=== PATIENT | female | born 1955 | race Caucasian/White ===

== ENCOUNTER 2023-01-31 18:47 | Observation (INO) ==
[2023-01-31 23:39] LABS: ABS Lymphocytes 1.2 10^3/uL (1.0-4.8); ABS Monocytes 0.8 10^3/uL (0.0-0.9); ABS Neutrophils 11.8 10^3/uL (1.5-7.6); Hematocrit 39.6 % (35-45); Hemoglobin 13.8 g/dL (11.5-14.3); Lymphocyte % 8.9 %; Mean Corpuscular Hemoglobin 33.3 pg (27-33); Mean Corpuscular Hgb Conc 34.9 g/dL (31-36); Mean Corpuscular Volume 95.2 fL (80-97); Mean Platelet Volume 7.8 fL (7.5-11.2); Platelet Count 282 10^3/uL (150-450); Red Blood Count 4.16 10^6/uL (3.63-4.92); Red Cell Distribution Width 12.7 % (12-17); White Blood Count 13.8 10^3/uL (3.8-11.8)
[2023-01-31 23:59] LABS: Albumin 4.6 g/dL (3.2-5.2); Albumin/Globulin Ratio 1.2 (1-3); Creatinine, Serum 0.72 mg/dL (0.51-0.95); Potassium 3.8 mmol/L (3.5-5.0); Total Bilirubin 0.6 mg/dL (0.2-1.0); Total Protein 8.6 g/dL (6.4-8.9)
[2023-02-01] MEDS ORDERED: Lactated Ringers 1000 ml BAG 1,000 ML IV ONE ×2 (02:49→23:25)
[2023-02-01 03:04] LABS: C Reactive Protein 174.67 mg/L (<8.01)
[2023-02-01] MEDS ORDERED: Iohexol 350 (CONTRAST) 500 ML MDV IV ONE (03:04)
[2023-02-01] MEDS ORDERED: cefTRIAXone 1 gm/50 mL D5W 1 GM/50 ML BAG IV ONE (05:20)
[2023-02-01] MEDS ORDERED: Azithromycin 500 mg/250 ml NS 500 MG/250 ML BAG IVPB ONE (05:20)
[2023-02-01 05:40] LABS: Urine Appearance Clear; Urine Bilirubin Negative (Negative); Urine Blood 2+ (Negative); Urine Color Yellow; Urine Glucose Negative (Negative); Urine Ketones 2+ (Negative); Urine Nitrite Negative (Negative); Urine Protein 1+(30 mg/dL) (Negative); Urine Specific Gravity 1.051 (1.002-1.030); Urine Urobilinogen Negative (Negative)
[2023-02-01 05:41] LABS: Urine Bacteria Absent (Absent); Urine Red Blood Cell 3+(>10/hpf) (Absent); Urine Squamous Epithelial Cell Present (Absent); Urine White Blood Cell Trace(0-5/hpf) (Absent)
[2023-02-01] MEDS ORDERED: NS 0.9% 1000 ml BAG 1,000 ML IV SCH (06:15)
[2023-02-01] MEDS: DOXYcycline 100 MG in NS 0.9% 250 ml 250 ML IVPB SCH ×3 (07:24→20:47)
[2023-02-01] MEDS ORDERED: Metoclopramide 5 MG/ML VIAL (10 mg) IV SLOW PU ONE (16:03)
[2023-02-01] MEDS ORDERED: Morphine 2 MG/ML SYRINGE IV ONE (16:04)
[2023-02-01] MEDS: Latanoprost 0.005% 2.5 ml BTL RIGHT EYE SCH (20:57)
[2023-02-01] MEDS ORDERED: Acetaminophen IV 1 GM/100ML 1,000 MG/100 ML BAG IV ONE (23:28)
[2023-02-02 00:02] LABS: ABS Lymphocytes 0.6 10^3/uL (1.0-4.8); ABS Monocytes 0.6 10^3/uL (0.0-0.9); ABS Neutrophils 9.7 10^3/uL (1.5-7.6); Hematocrit 31.8 % (35-45); Hemoglobin 11.2 g/dL (11.5-14.3); Lymphocyte % 5.9 %; Mean Corpuscular Hemoglobin 33.5 pg (27-33); Mean Corpuscular Hgb Conc 35.3 g/dL (31-36); Mean Platelet Volume 7.2 fL (7.5-11.2); Platelet Count 245 10^3/uL (150-450); Red Blood Count 3.34 10^6/uL (3.63-4.92); Red Cell Distribution Width 12.6 % (12-17)
[2023-02-02 00:19] LABS: Calcium 7.8 mg/dL (8.6-10.3); Creatinine, Serum 0.69 mg/dL (0.51-0.95); Potassium 3.7 mmol/L (3.5-5.0); eGFR CKD-EPI 94.5 (>60)
[2023-02-02] MEDS: cefTRIAXone 1 gm/50 mL D5W 1 GM/50 ML BAG IV SCH (05:46)
[2023-02-02] MEDS ORDERED: cefTRIAXone 1 gm/50 mL D5W 1 GM/50 ML BAG IV SCH (06:00)
[2023-02-02 06:50] LABS: ABS Basophils 0.1 10^3/uL (0.0-0.1); ABS Lymphocytes 1.2 10^3/uL (1.0-4.8); ABS Monocytes 0.5 10^3/uL (0.0-0.9); ABS Neutrophils 8.6 10^3/uL (1.5-7.6); ABS Nucleated RBC 0.01 10^3/ul; Hematocrit 38.2 % (35-45); Hemoglobin 12.9 g/dL (11.5-14.3); Lymphocyte % 11.3 %; Mean Corpuscular Hgb Conc 33.8 g/dL (31-36); Mean Corpuscular Volume 97.7 fL (80-97); Mean Platelet Volume 7.6 fL (7.5-11.2); Nucleated Red Blood Cells % 0.1 /100 WBC (0.0-0.4); Platelet Count 263 10^3/uL (150-450); Red Blood Count 3.91 10^6/uL (3.63-4.92); Red Cell Distribution Width 13.1 % (12-17); White Blood Count 10.4 10^3/uL (3.8-11.8)
[2023-02-02 07:07] LABS: C Reactive Protein 226.23 mg/L (<8.01); Calcium 8.5 mg/dL (8.6-10.3); Creatinine, Serum 0.64 mg/dL (0.51-0.95); Potassium 3.3 mmol/L (3.5-5.0); eGFR CKD-EPI 96.2 (>60)
[2023-02-02] MEDS ORDERED: Potassium Chlor 20 meq TAB.ER PO ONE (08:27)
[2023-02-02] MEDS: DOXYcycline 100 MG in NS 0.9% 250 ml 250 ML IVPB SCH ×2 (08:38→21:44)
[2023-02-02 08:47] LABS: Magnesium 2.2 mg/dL (1.9-2.7)
[2023-02-02] MEDS ORDERED: Lactated Ringers 1000 ml BAG 1,000 ML IV ONE (16:10)
[2023-02-02] MEDS: Latanoprost 0.005% 2.5 ml BTL RIGHT EYE SCH (21:43)
[2023-02-03 06:41] LABS: Calcium 8.4 mg/dL (8.6-10.3); Creatinine, Serum 0.54 mg/dL (0.51-0.95); Potassium 3.2 mmol/L (3.5-5.0); eGFR CKD-EPI 100.2 (>60)
[2023-02-03] MEDS: cefTRIAXone 1 gm/50 mL D5W 1 GM/50 ML BAG IV SCH (07:16)
[2023-02-03] MEDS ORDERED: Lactated Ringers 1000 ml BAG 1,000 ML IV ONE (07:51)
[2023-02-03] MEDS: DOXYcycline 100 MG in NS 0.9% 250 ml 250 ML IVPB SCH (08:17)
[2023-02-03] MEDS: KCL 20 MEQ/100 ML IVPREMIX 20 MEQ/100 ML BAG IV SCH ×3 (09:52→15:36)
[2023-02-03] MEDS ORDERED: Oxymetazoline 0.05% NASAL SPR 15 ML BTL BOTH NARES ONE (10:24)
[2023-02-03] MEDS ORDERED: Prochlorperazine 5 mg/ml 2 ml VIAL (10 mg) IV ONE (10:25)
[2023-02-03 13:18] VITALS: BP 144/88
[2023-02-03] MEDS ORDERED: Potassium Chlor 20 meq TAB.ER PO ONE (15:33)
[2023-02-03 16:47] LABS: Anaplasma phagocytophilum Negative (Negative); B. miyamotoi PCR, B Negative (Negative); Babesia divergens/MO-1 Negative (Negative); Babesia ducani Negative (Negative); Ehrlichia chaffeensis Negative (Negative); Ehrlichia ewingii/canis Negative (Negative); Ehrlichia muris eauclairensis Negative (Negative)
== END 2023-02-03 16:30 | disposition home or self-care (01) ==
LOC: ED 18:47 → EDHOLD 18:47 → SUATTDRO 02-01 06:13 → MED 02-01 10:09
PROVIDERS: ADMIT Internal Medicine; ATTEND Student in an Organized Health Care Education/Training Program